=== PATIENT | female | born 1985 | race Two or more races ===

== ENCOUNTER 2020-09-24 10:52 | Outpatient (AMBR) | payer MEDICAID, SELFPAY ==
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
--- NOTE | 2020-09-11 12:51 | PT.ODAYNRPT ---
PT Outpatient Daily Note Date of Service: 09/11/20 OP Daily Note Visit Reasons: back pain Outpatient Physical Therapy Treatment Date: 09/11/20 Subjective: Pt's back pain feels so so. Pt still has pain in the same area but less intense today Objective: Please see flow chart for list of ther ex performed Assessment: tolerate exercises; cues to relax with STM in prone position Plan: Continue with PT Length of Time (minutes) of Treatment: 30 Minutes Office Procedures PT Procedures PT Date of Service: 09/09/20 OP PT Eval Mod Complex 30 minutes: Yes PT Procedures PT Date of Service: 09/11/20 Therapeutic Exercise 30 minutes: Yes
--- NOTE | 2020-09-15 09:41 | PT.ODAYNRPT ---
PT Outpatient Daily Note Date of Service: 09/15/20 OP Daily Note Visit Reasons: back pain Outpatient Physical Therapy Treatment Date: 09/15/20 Subjective: Pt's back feels a little better after last session. Pt still notice some pain in the mid back but less intense Objective: Please see flow chart for list of ther ex performed Assessment: tolerate exercises with minimal pain Plan: Continue with PT Length of Time (minutes) of Treatment: 30 Minutes Office Procedures PT Procedures PT Date of Service: 09/09/20 OP PT Eval Mod Complex 30 minutes: Yes PT Procedures PT Date of Service: 09/11/20 Therapeutic Exercise 30 minutes: Yes PT Procedures PT Date of Service: 09/15/20 Therapeutic Exercise 30 minutes: Yes
--- NOTE | 2020-09-19 10:51 | PT.ODAYNRPT ---
PT Outpatient Daily Note Date of Service: 09/19/20 OP Daily Note Visit Reasons: back pain Outpatient Physical Therapy Treatment Date: 09/19/20 Subjective: Pt's back feels better. Pt stated that she notice less pain and muscle tension after each PT session Objective: Please see flow chart for list of ther ex performed Assessment: tolerate exercises with minimal pain; decrease tension in T/S paraspinal tone after STM. Plan: Continue with PT Length of Time (minutes) of Treatment: 30 Minutes Office Procedures PT Procedures PT Date of Service: 09/19/20 Therapeutic Exercise 30 minutes: Yes PT Procedures PT Date of Service: 09/09/20 OP PT Eval Mod Complex 30 minutes: Yes PT Procedures PT Date of Service: 09/11/20 Therapeutic Exercise 30 minutes: Yes PT Procedures PT Date of Service: 09/15/20 Therapeutic Exercise 30 minutes: Yes
--- NOTE | 2020-09-24 14:19 | PT.ODS1RPT ---
PT OP Progress/Discharge Note Date of Service: 09/24/20 Progress Note/DC Note Progress Note/Discharge Note: DC Note Patient Information Visit Reasons: back pain Medical Diagnosis: M54.6; M54.5; M25.512; V89.2XXA Treatment Dx #1: Mid Back Pain Treatment Dx #2: Low Back Pain Service Continue Service or Discharge: Discharge Discharge Date: 09/24/20 Status Subjective: Pt's mid and lower back pain (2/10) has been better since starting physical therapy. Pt has been able to perform chores, lifting, self care, cook, clean, and ADLs with less limitation. At this time Pt feels comfortable being release from care with exercises to continue at home. Objective: T/S and L/S AROM: all motions are WNL BUE AROM: all motions are WNL Scapula MMTs: grossly 3/5 Hip PROM: all motions are WNL Hip MMTs Glute Med: 3/5 Glute Max: 3/5 Assessment: Pt demonstrate functional spinal mobility and core strength allowing her to resume ADLs with less limitation. Pt will no longer benefit from physical therapy due to meeting set goals in therapy. Pt was instructed on HEP last session and educated to continue exercises to maintain overall mobility. Pt performed all exercises safely, thank you for your referrals Plan: D/C home with HEP and follow up with provider PRN Office Procedures PT Procedures PT Date of Service: 09/19/20 Therapeutic Exercise 30 minutes: Yes PT Procedures PT Date of Service: 09/09/20 OP PT Eval Mod Complex 30 minutes: Yes PT Procedures PT Date of Service: 09/11/20 Therapeutic Exercise 30 minutes: Yes PT Procedures PT Date of Service: 09/15/20 Therapeutic Exercise 30 minutes: Yes PT Procedures PT Date of Service: 09/24/20 Therapeutic Exercise 30 minutes: Yes
== END 2020-09-29 23:59 | disposition home or self-care (01) ==
PROVIDERS: PCP Nurse Practitioner Family; Referring Provider Nurse Practitioner Family; Visit Provider Nurse Practitioner Family
DX: M54.6 Pain in thoracic spine (principal); M54.5 Low back pain; M25.512 Pain in left shoulder; V89.2XXD Person injured in unspecified motor-vehicle accident, traffic, subsequent encounter; R26.2 Difficulty in walking, not elsewhere classified; R07.9 Chest pain, unspecified; M79.603 Pain in arm, unspecified
CPT/HCPCS: 97110; 97162

== ENCOUNTER → 2024-08-08 | Outpatient (CLI) | payer MEDICAID, SELFPAY ==
--- NOTE | 2024-08-08 | XR_ITS ---
Examination: Right knee 2 views Technique one AP lateral right knee 2 views Exam date and time: August 08, 2024 1247 hrs. Indications: Palpable mass in the popliteal space noticed beginning 2 months ago. Findings: [id number] tricompartment osteoarthritis No fracture. No soft tissue vascular calcification Impression: Consider ultrasound soft tissue knee follow-up
== END | disposition home or self-care (01) ==
LOC: CDIM 12:03
PROVIDERS: PCP Nurse Practitioner Family; Referring Provider Nurse Practitioner Family; Visit Provider Nurse Practitioner Family
DX: M71.21 Synovial cyst of popliteal space [Baker], right knee (principal)
CPT/HCPCS: 73560

== ENCOUNTER → 2024-09-03 | Outpatient (CLI) | payer MEDICAID, SELFPAY ==
--- NOTE | 2024-09-03 09:41 | XR_ITS ---
Examination: Ultrasound soft tissue extremity right knee TECHNIQUE: Grayscale sonographic images soft tissue right knee Exam date and time: September 03, 2024 1006 hours INDICATIONS: Right knee pain and palpable lump noticed beginning 2 months ago FINDINGS: Cystlike structure in the lateral knee 2.2 x 0.6 x 1.6 cm IMPRESSION: Cystlike structure with internal echoes in the soft tissue posterior right lateral knee, 2.2 x 0.6 x 1.6 cm, clinical correlation advised
== END | disposition home or self-care (01) ==
PROVIDERS: Referring Provider Nurse Practitioner Family; Visit Provider Nurse Practitioner Family
DX: R22.41 Localized swelling, mass and lump, right lower limb (principal)
CPT/HCPCS: 76882

== ENCOUNTER 2024-10-23 05:30 | Day surgery (SDC) | payer MEDICAID, SELFPAY ==
[2024-10-22 07:40] VITALS: BMI 33.5
[2024-10-22 08:39] LABS: Basophils % (Auto) 1 % (0-2.5); Eosinophils # (Auto) 0.1 Thou/mm3 (0.0-0.5); Eosinophils % (Auto) 2 % (0-10); Hematocrit 36.2 % (36.0-46.0); Immature Granulocytes % (Auto) 0 % (0-0); Immature Granulocytes Auto 0.01 Thou/mm3 (0.00-0.00); Lymphocytes # (Auto) 2.5 Thou/mm3 (1.0-4.8); Lymphocytes % (Auto) 39 % (10-50); Mean Corpuscular HGB Conc 33.1 g/dl (31.0-37.0); Mean Corpuscular Hemoglobin 24.4 pg (25.0-35.0); Mean Corpuscular Volume 74 fL (80-100); Monocytes # (Auto) 0.5 Thou/mm3 (0.0-0.8); Monocytes % (Auto) 7 % (0-12); Neutrophils # (Auto) 3.3 Thou/mm3 (1.8-7.7); Neutrophils % (Auto) 51 % (37-80); Nucleated Red Blood Cell % 0 /100 WBC (0); Platelet Count 271 Thou/mm3 (140-440); RDW Standard Deviation 37.3 fL (36.4-46.3); Red Blood Count 4.91 Miln/mm3 (4.00-5.20); White Blood Count 6.4 Thou/mm3 (3.6-11.0)
[2024-10-22 08:53] LABS: Anion Gap 10 (7-16); BUN/Creatinine Ratio 17 Ratio (12-20); Blood Urea Nitrogen 12 mg/dL (9-23); Calcium 9.9 mg/dL (8.3-10.6); Carbon Dioxide 24.4 mMol/L (20.0-31.0); Chloride 102 mMol/L (98-107); Creatinine (Component) 0.7 mg/dL (0.6-1.3); Estimated Creatinine Clearance 96.4 mL/min (>60); Glucose 96 mg/dL (74-106); Osmolality,Calculated 271 (275-295); Sodium 136 mMol/L (136-145); eGFR > 60 See Note
[2024-10-22 09:24] LABS: HCG,Qualitative Serum Negative
[2024-10-23] VITALS (7 sets, daily range): BP systolic 101–136; BP diastolic 56–86; PULSE 74–85; RESP 15–20; TEMP 36.7–37.5; O2SAT 97–100; BMI 33.1
[2024-10-23] MEDS: RINGERS LACTATED 1000 ML 1,000 ML 20 ML IV (07:10)
--- NOTE | 2024-10-23 08:09 | PD.SUROPNT ---
Date of Procedure 10/23/24 Pre Op Diagnosis Posterior right knee soft tissue mass Post Op Diagnosis Posterior right knee subcutaneous soft tissue mass Procedure Excision of subcutaneous soft tissue mass from posterior right knee Findings An approximately 3.5 cm lipomatous mass in the subcutaneous soft tissue of posterior right knee Procedure Description Patient brought into the operating room in supine position. After administration of general endotracheal anesthesia, patient was placed in prone position. Her posterior right knee was prepped and draped in standard surgical manner. After administration of local anesthesia an approximately 3 cm incision was made and dissection was deepened into soft tissue. Subcutaneous soft tissue mass was circumferentially dissected out surrounding tissue and excised from underlying fascia. The mass was measuring to be approximately 3.5 cm in diameter, lipomatous in nature. The wound was washed and irrigated and hemostasis achieved using electrocautery. Subcutaneous tissue reapproximated with interrupted sutures using 2-0 Vicryl and incision was closed with 4-0 Monocryl in subcuticular fashion. Dermabond applied. Patient tolerated procedure well. She was placed in supine position and extubated. She was breathing spontaneously without difficulty and was transferred to postanesthesia care in stable condition. Instruments, needles and sponge counts were reported to be correct x 2. Anesthesia GETA and local Pathology / specimen Other (Posterior right knee mass) Estimated Blood Loss 2 Condition Stable Disposition PACU Surgeon Jie Urias MD Surgical Staff Operation Date: 10/23/24 07:30 Case Staff Anesthesiologist: Antonio Giordano
--- NOTE | 2024-10-23 08:15 | SUR.PHASEI ---
0815 Patient arrived to recovery resting comfortably in [facility], on oxygen 4L via nasal cannula, breathing unlabored, vital signs stable, dressing intact to right posterior knee; dermabond, no bleeding noted, denies nausea, report received from Ling ROGER/Angel ROGER and Dr. Giordano
--- NOTE | 2024-10-23 09:05 | SUR.PHASEII ---
0905 Patient meets discharge criteria from recovery, awake and alert, breathing unlabored, vital signs stable, denies pain, dressing intact; no bleeding noted, ate a jello and drinking cranberry juice; denies nausea, assisted with dressing into her clothing by her daughter, discharge instructions given to patient and patients daughter with the assistance of the hospital intperepter Mariana, daughter signed discharge instructions. Patient given all her belongings prior to discharge, transported via wheelchair and left in a private vehicle.
== END 2024-10-23 09:05 | disposition home or self-care (01) ==
PROVIDERS: PCP Nurse Practitioner Family; Referring Provider Surgery; Visit Provider Surgery
PROC: (CPT 27337; principal; 2024-10-23 07:30)
DX: D17.23 Benign lipomatous neoplasm of skin and subcutaneous tissue of right leg (principal)
CPT/HCPCS: 27337; 36415; 80048; 84703; 85025; A4217; A4649; J0131; J0690; J1885; J2250; J2405; J2704; J2765; J3010; J3490; J7120